=== PATIENT | female | born 1985 | race Hispanic/Latino ===

== ENCOUNTER 2016-10-16 19:47 | Emergency (ER) | payer OTHER ==
[2016-10-16] MEDS ORDERED: NORMAL SALINE 10 ML SYRINGE FLUSH IVP PRN (20:03)
[2016-10-16] MEDS ORDERED: MORPHINE SULFATE 2 MG/1 ML IV ONE (20:03)
[2016-10-16] MEDS ORDERED: Sodium Chloride 0.9% 1,000 ML PRIMARY IV ONE (20:03)
[2016-10-16] MEDS ORDERED: Famotidine Inj 20 MG in Normal Saline Flush 10 ML IVP ONE (20:03)
[2016-10-16] MEDS ORDERED: ONDANSETRON 4 MG/2 ML VIAL IVP ONE ×2 (20:03→20:48)
--- NOTE | 2016-10-16 20:09 | EKG ---
[address] [address] Measurements Intervals [place] Rate: 81 P: 64 [place]: 140 QRS: 44 QRSD: 82 T: 51 QT: 331 QTc: 368 Interpretive Statements SINUS RHYTHM Compared to ECG 09/29/2015 11:51:49 No significant changes Electronically Signed On 10-17-16 09:41:45 MST by Jesse Mason MD [email or web address]
[2016-10-16 20:13] LABS: BASOPHILS # (AUTO) 0.07 10*3/UL; BASOPHILS % (AUTO) 1.1 % (0-1); EOSINOPHILS % (AUTO) 0.3 % (0-8); HEMATOCRIT 39.2 % (37.0-47.0); HEMOGLOBIN 13.6 g/dL (12.0-16.0); IMM GRAN % (AUTO) 0.2 % (0-5); IMM GRAN# (AUTO) 0.01 10*3/UL; LYMPHOCYTES # (AUTO) 2.04 10*3/uL; LYMPHOCYTES % (AUTO) 31.9 % (10-50); MEAN CORPUSCULAR HEMOGLOBIN 30.1 PG (27-31); MEAN CORPUSCULAR HGB CONC 34.7 g/dL (33-37); MEAN PLATELET VOLUME 10.2 FL (7.4-12.2); MONOCYTES % (AUTO) 7.8 % (5-15); NEUTROPHILS # (AUTO) 3.76 10*3/UL; NEUTROPHILS % (AUTO) 58.7 % (50-80); PLATELET MORPHOLOGY COMMENT NORMAL MORPHOLOGY (NORM); RDW COEFFICIENT OF VARIATION 13.1 % (11.5-14.5); RED BLOOD COUNT 4.52 10^6/uL (4.20-5.40)
[2016-10-16 20:26] LABS: AMYLASE 65 U/L (30-110); ASPARTATE AMINO TRANSFERASE 22 IU/L (8-39); BILIRUBIN,TOTAL 0.4 mg/dL (0.3-1.2); BLOOD UREA NITROGEN 14 mg/dL (7-22); BUN/CREATININE RATIO 15.55 (6-20); C-REACTIVE PROTEIN 0.6 mg/dL (0.0-0.9); CALCIUM 9.6 mg/dL (8.7-10.7); CHLORIDE 106 meq/L (98-112); CREATININE 0.9 mg/dL (0.50-1.20); EST GLOMERULAR FILTRATION > 60 (>60 ml/min/1.73m(2)); GLUCOSE 81 mg/dL (78-110); SODIUM 140 meq/L (135-145); TOTAL PROTEIN 7.3 g/dL (6.1-8.0)
[2016-10-16] MEDS ORDERED: MORPHINE SULFATE 4 MG/1 ML IVP ONE (20:47)
[2016-10-16 20:50] LABS: CLARITY,URINE CLEAR (CLEAR); URINE SAMPLE TYPE VOIDED SPECIMEN
[2016-10-16 20:51] LABS: BILIRUBIN,URINE NEGATIVE (NEG); GLUCOSE, URINE (UA) NEGATIVE (NEG); LEUKOCYTE ESTERASE ,URINE NEGATIVE (NEG); NITRATE,URINE NEGATIVE (NEG); OCCULT BLOOD,URINE TRACE (NEG); PROTEIN,URINE NEGATIVE (NEG); UROBILINOGEN,URINE 0.2 EU/dL (0.2)
[2016-10-16 20:52] LABS: RBC,URINE 0-3 /hpf; SQUAMOUS EPITHELIAL CELL,UR RARE
[2016-10-16 20:55] VITALS: RESP 22; TEMP 97.5
--- NOTE | 2016-10-16 21:14 | DI ---
HISTORY: Right lower quadrant pain. COMPARISON: None available. TECHNIQUE: Multiple helically acquired CT images were obtained through the abdomen and pelvis follow ing the intravenous administration of contrast. FINDINGS: Examination demonstrates a normal appendix. Lung bases are clear. The uterus and adnexa are normal. The urinary bladder is unremarkable. There is no mesenteric or retroperitoneal lymphadenopathy. Patient is status post cholecystectomy. Visualized portions of the colon and small bowel are also unremarkable. The anterior abdominal subcutaneous fat is unremarkable. The anterior abdominal wall is also unremar kable. Skeletal structures are unremarkable. IMPRESSION: 1. No evidence of acute appendicitis. 2. No acute intra-abdominal pathology.
--- NOTE | 2016-10-16 21:18 | PDOC ---
Abdomen/Flank HPI - General Chief Complaint: Chest Pain Stated Complaint: Left chest pain Date Seen by Provider: 10/16/16 Time Seen by Provider: 19:50 Source: POSITIVE: Patient Exam Limitations: POSITIVE: No limitations Nurse's Notes Reviewed & Considered: Yes - History of Present Illness Initial Comments: The patient is a 31-year-old female who presents to the emergency department with complaints of right lower quadrant abdominal pain. She states that for the past 3 days she has had intermittent sharp right lower quadrant abdominal pain. She states these pains have been worse at night. She currently describes a constant sharp pain in the right lower quadrant. She has had associated nausea and vomiting. In addition she does have some pain across her lower chest that extends down into her abdomen. This pain is worsened with taking deep inspiration. She denies shortness of breath, fevers or chills, urinary symptoms, vaginal bleeding or discharge, pain or swelling in her extremities or any other associated complaints. She has had previous cholecystectomy. She states that her last menstrual cycle was approximately 1 week ago. She does not take any form of estrogen or control pills. She does report a prior history of kidney stones. - Patient Home Medications Home Medications: Home Medications Sumatriptan Succinate [Imitrex] 50 mg PO ONCE PRN #20 tab 09/22/15 Buspirone HCl 1 tab PO BID #60 tab 06/17/16 Venlafaxine HCl [Effexor] 37.5 mg PO DAILY 06/21/16 Fluticasone Propionate [Flonase Allergy Relief] 2 spr MARCELINO BID #1 spr 08/15/16 Quetiapine Fumarate [Seroquel] 300 mg PO DAILY tab 08/15/16 - Patient Allergies Allergies/Adverse Reactions: Allergies Allergy/AdvReac Type Severity Reaction Status Date / Time No Known Allergies Allergy Verified 10/16/16 21:09 Past Medical History - heen HEENT History: Denies History Cardiovascular History: Denies History Respiratory History: Denies History Gastrointestinal History: Other (please comment) Additional Gastrointestinal History: Hx of cholecystectomy. Genitourinary History: Recurrent UTI, Kidney Stones Endocrine History: Denies History Musculoskeletal History: Other (please comment) Prosthesis or Implant: No Additional Musculoskeletal History: Hx of right carpal tunnel release. Neurological History: Denies History Blood Disorders: Denies History Psychiatric History: Depression, Anxiety Disorders History of Sexually Transmitted Diseases: No Female Reproductive History: Denies History Obstetrical History: Denies History Cancer History: Denies History In Past Year Been Physically Harmed or Verbally Threatened: No History of MDRO: No History of Other Communicable Diseases: No Tobacco Use: Current Every Day Smoker Alcohol Use: Occasionally Substance Use Type: None Previous Surgical History: Yes Type / Date of Surgery: Hx of cholecystectomy, T & A, Right carpal tunnel release/LEEP, LITHOTRIPSY Anesthesia Reactions: No Malignant Hyperthermia: No Significant Family History: No pertinent family hx Past Medical History Reviewed: Reviewed - No Changes ROS - Limitations ROS Limitations: No Limitations Constitution: DENIES: Chills, Fever Cardiovascular: REPORTS: Chest Pain. DENIES: Heart Racing, Heart Palpitations, Blood Pressure Problem, Edema Respiratory: REPORTS: Hurts To Breathe. DENIES: Cough Non Productive, Cough Productive, Shortness Of Breath Neurological: REPORTS: Denies Neuro Symptoms Gastrointestinal: REPORTS: Abdominal Pain, Nausea, Vomitting, Diarrhea, Other ( She reports that she has intermittent diarrhea and constipation for the past 4 or 5 months, she was supposed to have EGD and colonoscopy however could not afford this.) Musculoskeletal: REPORTS: Denies MS Symptoms Genitourinary: REPORTS: Denies Symptoms, Flank Pain, Other (No vaginal bleeding or discharge currently). DENIES: Dysuria, Hematuria, Difficulty Urinating Eyes: REPORTS: Denies Symptoms ENT: REPORTS: Denies Symptoms Skin: DENIES: Rash Abdominal/Flank Pain PE - General Appearance General Appearance: POSITIVE: Alert, Cooperative, No Acute Distress - HEENT HEENT: POSITIVE: Head Inspection Nml, Eyes Inspection Nml, Ears Inspection Nml, Pharynx Inspect. Nml - Neck Neck: POSITIVE: Normal Inspection. NEGATIVE: Lymphadenopathy - Respiratory Respiratory: POSITIVE: No Respiratory Distress, Breath Sounds Normal - Cardiovascular Cardiovascular: POSITIVE: Regular Rate and Rhythm, Heart Sounds Normal - Abdomen Abdomen: Soft: (All Quadrants), Normal Bowel Sounds: (All Quadrants), No Palpabale Mass: (All Quadrants), No Distention: (All Quadrants) Additional Abdominal Details: She does have tenderness primarily in the right lower quadrant with some generalized rebound tenderness which elicits pain in the right lower quadrant, no guarding, some mild right-sided CVA tenderness, some increased pain with heel tap. - Back Back: POSITIVE: CVA Tenderness (R). NEGATIVE: CVA Tenderness (L) - Skin Skin: POSITIVE: Intact, No Rash - Extremities Extremity: Normal ROM: (All Extremities), Normal Inspection: (All Extremities) - Neurological Neurological: POSITIVE: Oriented X3, Motor Normal, Sensation Normal Abdomen Progress - Results Reviewed by me Xrays/CTs/US Reviewed by me: Yes Discussed with Radiologist: Yes Radiology Findings: CT scan of the abdomen and pelvis reveals no evidence of any acute intra-abdominal findings per radiologist. She had a normal appendix. Lab Results Reviewed: Yes Lab Results:: Laboratory Results 10/16/16 10/16/16 Range/Units 20:05 20:44 WBC 6.40 (4.8-10.8) 10^3/uL RBC 4.52 (4.20-5.40) 10^6/uL Hgb 13.6 (12.0-16.0) g/dL Hct 39.2 (37.0-47.0) % MCV 86.7 (81-99) FL MCH 30.1 (27-31) PG MCHC 34.7 (33-37) g/dL RDW Std Deviation 40.7 (39-50) fL RDW Coeff of Sarah 13.1 (11.5-14.5) % Plt Count 307 (140-350) 10*3/uL MPV 10.2 (7.4-12.2) FL Immature Gran % (Auto) 0.2 (0-5) % Neut % (Auto) 58.7 (50-80) % Lymph % (Auto) 31.9 (10-50) % [place] % (Auto) 7.8 (5-15) % Eos % (Auto) 0.3 (0-8) % Baso % (Auto) 1.1 H (0-1) % Immature Gran # (Auto) 0.01 10*3/UL Neut # (Auto) 3.76 10*3/UL Lymph # (Auto) 2.04 10*3/uL [place] # (Auto) 0.50 (0.3-0.8) 10*3/UL Eos # (Auto) 0.02 10*3/UL Baso # (Auto) 0.07 10*3/UL WBC Morphology Comment Normal morphology (NORM) Plt Morphology Comment Normal morphology (NORM) RBC Morph Comment Normal morphology (NORM) D-Dimer 0.26 (0.00-0.59) mg/L Sodium 140 (135-145) meq/L Potassium 4.0 (3.8-5.2) meq/L Chloride 106 (98-112) meq/L Carbon Dioxide 23 (23-33) meq/L Anion Gap 11 (5-20) BUN 14 (7-22) mg/dL Creatinine 0.9 (0.50-1.20) mg/dL Estimated GFR > 60 (>60 ml/min/1.73m(2)) BUN/Creatinine Ratio 15.55 (6-20) Glucose 81 (78-110) mg/dL Calculated Osmolality 289.0 (267-292) mOsm/kg Calcium 9.6 (8.7-10.7) mg/dL Total Bilirubin 0.4 (0.3-1.2) mg/dL AST 22 (8-39) IU/L ALT 30 (9-52) IU/L Alkaline Phosphatase 64 (38-126) IU/L Troponin I < 0.012 (< 0.040) ng/mL C-Reactive Protein 0.6 (0.0-0.9) mg/dL Total Protein 7.3 (6.1-8.0) g/dL Albumin 4.5 (3.5-4.8) g/dL Globulin 2.9 (2.50-4.10) g/dL Albumin/Globulin Ratio 1.50 (1.3-2.0) mg/g Amylase 65 (30-110) U/L Lipase 57 (23-300) IU/L Serum HCG, Qual Negative Ur Collection Type Voided specimen Urine Color Yellow Urine Clarity Clear (CLEAR) Urine pH 6.0 (5.0-8.5) Ur Specific [place] 1.020 (1.005-1.030) Urine Protein Negative (NEG) mg/dl Urine Glucose (UA) Negative (NEG) mg/dL Urine Ketones Negative (NEG) Urine Occult Blood Trace H (NEG) Urine Nitrate Negative (NEG) Urine Bilirubin Negative (NEG) Urine Urobilinogen 0.2 (0.2) EU/dL Ur Leukocyte Esterase Negative (NEG) Urine RBC 0-3 (NONE) /hpf Urine WBC None (NONE) Ur Squamous Epith Cells Rare (NONE) Ur Renal Epithelial Cell None (NONE) Urine Crystals None Urine Bacteria None (NONE) Urine Casts None (NONE) Urine Mucus None (NONE) Urine Trichomonas None (NONE) Urine Yeast None (NONE) Ur Culture Indicated? Culture not set - Patient's Progress MDM / ED Course: Because of her complaints of some pain radiating into her lower chest and EKG was done shortly after arrival which showed a normal sinus rhythm with no acute changes. An IV was established and she received initially 2 mg of morphine, 4 mg of Zofran and 20 mg of Pepcid IV. She did not have any significant pain relief or relief of nausea. She received a second dose of morphine 4 mg IV and a repeat dose of Zofran 4 mg IV. Her troponin and d-dimer are both normal. Remainder of her lab work and urinalysis are also unremarkable and her test is negative. CT scan of the abdomen and pelvis was ordered. This showed no acute abnormalities per radiologist. At this point the exact etiology of her right lower quadrant abdominal pain is unclear. It is possible that she could've passed a kidney stone or had a small ovarian cyst that ruptured that is no longer visible. In addition she has had bowel complaints off and on now for months. It is possible she may have some type of irritable bowel syndrome as well. She was supposed to have upper and lower endoscopies with the pipe cutter in [place] however did not complete this because her insurance lapsed. The lower chest pain is most likely secondary to reflux or gastritis. She was advised to start back on Prilosec daily. She also has prescriptions for Carafate and Bentyl as needed. She was given number for [place] as needed for severe breakthrough pain. She is advised return to the emergency room if she develops increased abdominal pain, fevers or chills, vomiting or dehydration, any worsening or change in symptoms. She'll follow-up with Dr. Evans and will consider rescheduling her endoscopies with the pipe cutter in [place]. - Consult Counseled: POSITIVE: Patient, RE: Lab Results, RE: Radiology Results, RE: DX, RE : Need for F/U Patient Care Time - Estimated PCT Patient Care Time (In Minutes): 35 Vital Signs - Recent Vital Signs Vital Signs: Vital Signs (Last 8 hours) Temp Pulse Resp BP Pulse Ox 10/16/16 19:47 97.5 F 80 22 109/56 96 - VS Reviewed Vital Signs Reviewed: Yes Discharge Clinical Impression: Abdominal pain Condition: Stable Patient Instructions Given at Discharge: Chest Pain (ED), Abdominal Pain (ED) Additional Instructions: The exact cause of your chest and abdominal pain is not clear. The EKG of your heart was normal and blood work did not show any evidence of heart attack or blood clot. Your blood work was all essentially normal. Your urinalysis was also normal. The CAT scan revealed a normal appendix, normal bowel, no evidence of kidney stone and no obvious ovarian cyst. It is possible that the right lower quadrant abdominal pain could be from a kidney stone that is past or from a small ovarian cyst that is ruptured causing a small amount of bleeding. The chest pain is most likely secondary to acid reflux or gastritis ( inflammation in your stomach). It is also possible that you may have irritable bowel syndrome. For now I would recommend restarting your Prilosec, Carafate and Bentyl as needed for abdominal pain. In addition your been given [place] which he can take one every 6 hours as needed for severe pain. Recommend returning to the emergency room if increased pain, fever, vomiting or dehydration, any worsening or change in symptoms. Recommend follow-up with Dr. Evans in 5-7 days. Consider rescheduling endoscopies with the pipe cutter. Follow Up With: JOSE EVANS [Primary Care Provider] -
[2016-10-16] MEDS ORDERED: KETOROLAC 30 MG/1 ML VIAL IVP ONE (21:44)
[2016-10-16] MEDS ORDERED: KETOROLAC 30 MG/1 ML VIAL ONE (21:52)
[2016-10-16] MEDS ORDERED: HYDROcodone-APAP 5 MG -325 MG TABLET PO SCH (22:00)
== END 2016-10-16 22:02 | disposition home or self-care (01) ==
LOC: ER 19:47
DX: R10.31 Right lower quadrant pain (principal); R07.89 Other chest pain; Z72.0 Tobacco use
CPT/HCPCS: 74177; 80053; 81001; 81003; 82150; 83690; 84484; 84703; 85025; 85379; 86140; 93005; 93010; J1885; 96374; 96375; 96376; 99284; J2270; J2405; J7030

== ENCOUNTER → 2017-01-15 | Outpatient (CLI) | payer OTHER | LOC: MOB LAB 10:37 | PROVIDERS: ATTEND Obstetrics & Gynecology | DX: Z30.430 Encounter for insertion of intrauterine contraceptive device (principal) | CPT/HCPCS: 87491; 87591 ==

== ENCOUNTER 2017-02-03 21:08 | Emergency (ER) | payer OTHER ==
[2017-02-03 21:32] VITALS: TEMP 97.9
[2017-02-03] MEDS ORDERED: NORMAL SALINE 10 ML SYRINGE FLUSH IVP PRN (21:32)
[2017-02-03] MEDS ORDERED: Sodium Chloride 0.9% 1,000 ML PRIMARY IV ONE (21:32)
[2017-02-03] MEDS: LORazepam 2 MG/1 ML VIAL IVP ONE ×2 (21:38→23:05)
[2017-02-03 21:46] LABS: VENOUS PH 7.48 (7.32-7.42)
[2017-02-03 21:47] LABS: BASOPHILS # (AUTO) 0.04 10*3/UL; BASOPHILS % (AUTO) 0.4 % (0-1); EOSINOPHILS # (AUTO) 0.02 10*3/UL; EOSINOPHILS % (AUTO) 0.2 % (0-8); HEMATOCRIT 41.1 % (37.0-47.0); HEMOGLOBIN 14.2 g/dL (12.0-16.0); LYMPHOCYTES # (AUTO) 2.17 10*3/uL; MEAN CORPUSCULAR HEMOGLOBIN 29.8 PG (27-31); MEAN CORPUSCULAR HGB CONC 34.5 g/dL (33-37); MEAN CORPUSCULAR VOLUME 86.3 FL (81-99); MEAN PLATELET VOLUME 10.5 FL (7.4-12.2); MONOCYTES # (AUTO) 0.67 10*3/UL (0.3-0.8); MONOCYTES % (AUTO) 7.1 % (5-15); NEUTROPHILS # (AUTO) 6.47 10*3/UL; RED BLOOD COUNT 4.76 10^6/uL (4.20-5.40)
[2017-02-03 21:49] LABS: PLATELET MORPHOLOGY COMMENT NORMAL MORPHOLOGY (NORM); RBC MORPHOLOGY COMMENT NORMAL MORPHOLOGY (NORM); WBC MORPHOLOGY COMMENT NORMAL MORPHOLOGY (NORM)
[2017-02-03 22:00] VITALS: RESP 20
[2017-02-03 22:00] LABS: BLOOD UREA NITROGEN 16 mg/dL (7-22); BUN/CREATININE RATIO 22.85 (6-20); CALCIUM 9.8 mg/dL (8.7-10.7); EST GLOMERULAR FILTRATION > 60 (>60 ml/min/1.73m(2)); SERUM ALBUMIN 4.6 g/dL (3.5-4.8)
[2017-02-03 22:10] LABS: BILIRUBIN,URINE SMALL (NEG); CLARITY,URINE CLEAR (CLEAR); COLOR,URINE YELLOW; GLUCOSE, URINE (UA) NEGATIVE (NEG); NITRATE,URINE NEGATIVE (NEG); OCCULT BLOOD,URINE Trace-intact (NEG); PH,URINE 5.5 (5.0-8.5); PROTEIN,URINE 100 mg/dl (NEG)
[2017-02-03 22:18] LABS: AMPHETAMINE SCREEN NEGATIVE (NEG); CANNABINOID SCREEN,URINE POSITIVE (NEG); COCAINE SCREEN NEGATIVE (NEG); METHADONE URINE SCREEN NEGATIVE (NEG); METHAMPHETAMINES SCREEN,URINE NEGATIVE (NEG); OPIATE SCREEN,URINE NEGATIVE (NEG); URINE SAMPLE TYPE CLEAN CATCH URINE; URINE SPECIFIC GRAVITY - MAN 1.038
[2017-02-03 22:19] LABS: RBC,URINE 0-1 /hpf; URINE SPECIFIC GRAVITY - MAN 1.038
[2017-02-03 22:20] LABS: BACTERIA,URINE FEW; SQUAMOUS EPITHELIAL CELL,UR MANY; WBC,URINE 0-1
--- NOTE | 2017-02-04 00:03 | PDOC ---
General Adult HPI - General Chief Complaint: General Medical Stated Complaint: Shaking, "feels like going to pass out" Date Seen by Provider: 02/03/17 Time Seen by Provider: 21:20 Source: POSITIVE: Patient Exam Limitations: POSITIVE: No limitations Nurse's Notes Reviewed & Considered: Yes - History of Present Illness Initial Comment: The patient is a 31-year-old female. She states that for the past hour she has felt "very shaky"and states that she has felt "tingling all over", especially in her hands. Patient had a migraine headache earlier today and took an over- the-counter migraine preparations just prior to the onset of her symptoms. She takes Effexor and BuSpar for anxiety and depression. No history of trauma. No fevers or chills. No focal motor deficits. No GI or symptoms. She has been under considerable stress lately due to personal relationships and finances. Have you received a tetanus shot in the past 10 years?: Yes Body Location Affected: REPORTS: Other (As above) Timing: REPORTS: Abrupt, Constant Duration: 1 hour Severity: Moderate Quality: REPORTS: Other (Patient denies any pain anywhere; no headache.) Context: REPORTS: None Modifying Factors: improves with: Nothing Similar Symptoms Previously: No Recent Care Received: REPORTS: Denies Any Prior Injuries Related to Current Complaint?: No - Patient Home Medications Home Medications: Home Medications Sumatriptan Succinate [Imitrex] 50 mg PO ONCE PRN #20 tab 09/22/15 Venlafaxine HCl [Effexor] 37.5 mg PO DAILY 06/21/16 Quetiapine Fumarate [Seroquel] 300 mg PO DAILY PRN tab 08/15/16 Hyoscyamine Sulfate [Levsin-Sl] 0.125 mg PO Q4-6HRSPRN tab 10/28/16 Omeprazole 1 cap PO DAILY cap 10/28/16 Buspirone HCl 1 tab PO BID tab 01/01/17 - Patient Allergies Allergies/Adverse Reactions: Allergies Allergy/AdvReac Type Severity Reaction Status Date / Time No Known Allergies Allergy Verified 02/03/17 21:14 Past Medical History - heen HEENT History: Denies History Cardiovascular History: Denies History Respiratory History: Denies History Gastrointestinal History: Other (please comment) Additional Gastrointestinal History: GASTROPARESIS Genitourinary History: Recurrent UTI, Kidney Stones Endocrine History: Denies History Musculoskeletal History: Other (please comment) Prosthesis or Implant: No Additional Musculoskeletal History: Hx of right carpal tunnel release. Neurological History: Migraines Blood Disorders: Denies History Psychiatric History: Depression, Anxiety Disorders, PTSD History of Sexually Transmitted Diseases: No Female Reproductive History: Denies History Obstetrical History: Denies History Cancer History: Denies History In Past Year Been Physically Harmed or Verbally Threatened: No History of MDRO: No History of Other Communicable Diseases: No Tobacco Use: Current Every Day Smoker Alcohol Use: Occasionally Substance Use Type: None Previous Surgical History: Yes Type / Date of Surgery: Hx of cholecystectomy, T & A, Right carpal tunnel release/LEEP, LITHOTRIPSY Anesthesia Reactions: No Malignant Hyperthermia: No Significant Family History: No pertinent family hx Past Medical History Reviewed: Reviewed - No Changes ROS - Limitations ROS Limitations: No Limitations Constitution: REPORTS: Denies Symptoms Cardiovascular: REPORTS: Denies Cardiac Symptoms Respiratory: REPORTS: Denies Resp Symptoms Neurological: REPORTS: Denies Neuro Symptoms Gastrointestinal: REPORTS: Denies GI Symptoms Endocrine: REPORTS: Denies Symptoms Musculoskeletal: REPORTS: Denies MS Symptoms Genitourinary: REPORTS: Denies Symptoms Eyes: REPORTS: Denies Symptoms ENT: REPORTS: Denies Symptoms Skin: REPORTS: Denies Skin Symptoms Lympathic: REPORTS: Denies Lympathic Symptoms Immunologic: POSITIVE: Denies Symptoms Psychiatric: POSITIVE: Denies Psych Symptoms General Adult Exam - General Appearance General Appearance: POSITIVE: Alert, Cooperative, No Acute Distress, No Evidence of Trauma, Other (Very anxious; tremulous; hyperventilating) - HEENT HEENT: POSITIVE: Head Inspection Nml, Eyes Inspection Nml, Ears Inspection Nml, Nose Inspection Nml, Oral/Dental Inspect. Nml, Pharynx Inspect. Nml, PERRL, EOMI - Pupils Pupil Size: 3 mm: Bilateral (PERRLA) - Neck Neck: POSITIVE: Normal Inspection, Thyroid Normal - Respiratory Respiratory: POSITIVE: No Respiratory Distress, Breath Sounds Normal, Chest Non- Tender - Cardiovascular Cardiovascular: POSITIVE: Regular Rate & Rhythm, No Murmur, No Gallop, PMI Normal Peripheral Pulses: Radial (R): 2+, Radial (L): 2+ - Abdomen Abdomen: Soft: (All Quadrants), Normal Bowel Sounds: (All Quadrants), Denies Tenderness: (All Quadrants), No Splenomegaly: (All Quadrants), No Hepatomegaly: (All Quadrants), No Guarding: (All Quadrants), No Rebound: (All Quadrants), No Palpable Pulse: (All Quadrants), No Palpabale Mass: (All Quadrants), No Distention: (All Quadrants), No Rigidity: (All Quadrants) - Back Back: POSITIVE: Normal Inspection - Skin Skin: POSITIVE: Normal Color, Warm, Dry, No Rash - Extremities Extremity: Non-Tender: (All Extremities), Normal ROM: (All Extremities), Normal Inspection: (All Extremities) - Neurological / Psychological Neurological: POSITIVE: Oriented X3, 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, Motor Normal, Sensation Normal, 5, 6 General Adult Progress - Results Reviewed by me Lab Results Reviewed: Yes (VBG shows respiratory alkalosis) Lab Results:: Laboratory Results 02/03/17 02/03/17 02/03/17 Range/Units 21:35 21:40 21:55 WBC 9.39 (4.8-10.8) 10^3/uL RBC 4.76 (4.20-5.40) 10^6/uL Hgb 14.2 (12.0-16.0) g/dL Hct 41.1 (37.0-47.0) % MCV 86.3 (81-99) FL MCH 29.8 (27-31) PG MCHC 34.5 (33-37) g/dL RDW Std Deviation 44.2 (39-50) fL RDW Coeff of Sarah 14.2 (11.5-14.5) % Plt Count 355 H (140-350) 10*3/uL MPV 10.5 (7.4-12.2) FL Immature Gran % (Auto) 0.2 (0-5) % Neut % (Auto) 69.0 (50-80) % Lymph % (Auto) 23.1 (10-50) % [place] % (Auto) 7.1 (5-15) % Eos % (Auto) 0.2 (0-8) % Baso % (Auto) 0.4 (0-1) % Immature Gran # (Auto) 0.02 10*3/UL Neut # (Auto) 6.47 10*3/UL Lymph # (Auto) 2.17 10*3/uL [place] # (Auto) 0.67 (0.3-0.8) 10*3/UL Eos # (Auto) 0.02 10*3/UL Baso # (Auto) 0.04 10*3/UL WBC Morphology Comment Normal morphology (NORM) Plt Morphology Comment Normal morphology (NORM) RBC Morph Comment Normal morphology (NORM) VBG pH 7.48 H (7.32-7.42) VBG pCO2 24 L (45-55) mmHg VBG HCO3 18 L (22-26) mmol/L VBG Base Excess -6 L (-2-2) MMOL/L Sodium 140 (135-145) meq/L Potassium 3.8 (3.8-5.2) meq/L Chloride 108 (98-112) meq/L Carbon Dioxide 19 L (23-33) meq/L Anion Gap 13 (5-20) BUN 16 (7-22) mg/dL Creatinine 0.7 (0.50-1.20) mg/dL Estimated GFR > 60 (>60 ml/min/1.73m(2)) BUN/Creatinine Ratio 22.85 H (6-20) Glucose 120 H (78-110) mg/dL Calculated Osmolality 291.0 (267-292) mOsm/kg Calcium 9.8 (8.7-10.7) mg/dL Total Bilirubin 0.3 (0.3-1.2) mg/dL AST 20 (8-39) IU/L ALT 22 (9-52) IU/L Alkaline Phosphatase 65 (38-126) IU/L Total Protein 7.6 (6.1-8.0) g/dL Albumin 4.6 (3.5-4.8) g/dL Globulin 3.0 (2.50-4.10) g/dL Albumin/Globulin Ratio 1.50 (1.3-2.0) mg/g Serum HCG, Qual Negative Ur Collection Type Clean catch urine Urine Color Yellow Urine Clarity Clear (CLEAR) Urine pH 5.5 (5.0-8.5) Ur Specific [place] >=1.030 (1.005-1.030) U Specif Grav (Refrac) 1.038 Urine Protein 100 (NEG) mg/dl Urine Glucose (UA) Negative (NEG) mg/dL Urine Ketones 15 (NEG) Urine Occult Blood Trace-intact H (NEG) Urine Nitrate Negative (NEG) Urine Bilirubin Small (NEG) Urine Urobilinogen 4.0 (0.2) EU/dL Ur Leukocyte Esterase Negative (NEG) Urine RBC 0-1 (NONE) /hpf Urine WBC 0-1 (NONE) Ur Squamous Epith Cells Many (NONE) Ur Renal Epithelial Cell None (NONE) Urine Crystals None Urine Bacteria Few (NONE) Urine Casts None (NONE) Urine Mucus Moderate (NONE) Urine Trichomonas None (NONE) Urine Yeast None (NONE) Ur Culture Indicated? Culture not set Urine Opiates Screen Negative (NEG) Ur Buprenorphine Negative (NEG) Ur Oxycodone Screen Negative (NEG) Urine Methadone Screen Negative (NEG) Ur Propoxyphene Screen Negative (NEG) Barbiturate Screen Negative (NEG) U Tricyclic Antidepress Negative (NEG) Phencyclidine Screen Negative (NEG) Amphetamines Screen Negative (NEG) U Methamphetamines Scrn Negative (NEG) Benzodiazepines Screen Negative (NEG) Cocaine Screen Negative (NEG) U Marijuana (THC) Screen Positive H (NEG) - Patient's Progress Pain Medication Addressed: POSITIVE: Not Applicable School/Work Release Addressed: POSITIVE: Not Applicable Re-Examine Time: 23:05 Re-Examine Comment: Patient given 2 mg of Ativan shortly after arrival with some improvement. Patient given another 2 mg and on discharge patient is asymptomatic and no longer tremulous or hyperventilating. Status: POSITIVE: Improved, Re-Examined - Consult Counseled: POSITIVE: Patient, RE: Lab Results, RE: DX, RE: Need for F/U Patient Care Time - Estimated PCT Patient Care Time (In Minutes): 38 Vital Signs - Recent Vital Signs Vital Signs: Vital Signs (Last 8 hours) Temp Pulse Resp BP Pulse Ox 02/03/17 21:45 96 20 104/79 97 02/03/17 21:13 97.9 F 106 H 22 149/100 97 - VS Reviewed Vital Signs Reviewed: Yes Discharge Clinical Impression: Anxiety, Hyperventilation Discharge Disposition: Discharged to Home Condition: Stable Patient Instructions Given at Discharge: Hyperventilation (ED), Anxiety (ED) Additional Instructions: I'm glad you are feeling better. You're having a severe anxiety episode with associated hyperventilation. This produced the shakiness and the "tingling" that you experienced. I believe you're going to be fine. Your numerous life stressors probably contributed to this episode. Follow-up with your primary care provider. Return here anytime if condition worsens in any way. Follow Up With: JOSE EVANS [Primary Care Provider] - (Instructions as above. Follow-up with your primary care provider. Return here as necessary.)
== END 2017-02-04 00:02 | disposition home or self-care (01) ==
LOC: ER 21:08
DX: F41.9 Anxiety disorder, unspecified (principal); R06.4 Hyperventilation; R20.2 Paresthesia of skin
CPT/HCPCS: 36415; 80053; 80305; 81001; 81003; 82803; 84703; 85025; 96361; 96374; 99283; J2060; J7030

== ENCOUNTER 2017-02-13 07:00 | Day surgery (SDC) | payer OTHER ==
[~2017-02-13 07:00] MED LIST: BUPivacaine Inj 0.25% PF - 10ml vial ONE; LIDOCAINE W/ SODIUM BICARB 0.5 ML SYR ONE; Lactated Ringers 1,000 ML PRIMARY IV ONE
[2017-02-13] MEDS ORDERED: NORMAL SALINE 10 ML SYRINGE FLUSH IVP PRN ×2 (07:03→08:40)
[2017-02-13] MEDS ORDERED: fentaNYL Inj 100 MCG/2 ML VIAL IVP PRN (07:03)
[2017-02-13] MEDS ORDERED: ATROPINE SULFATE 0.4 MG/1 ML VIAL IVP PRN (07:03)
[2017-02-13] MEDS ORDERED: ONDANSETRON 4 MG/2 ML VIAL IVP PRN (07:03)
[2017-02-13] MEDS ORDERED: Ondansetron ODT Tab 8 MG TAB PO PRN ×2 (07:03→08:40)
[2017-02-13] MEDS ORDERED: Lactated Ringers 1,000 ML PRIMARY IV SCH (07:15)
[2017-02-13 07:17] LABS: BILIRUBIN,URINE NEGATIVE (NEG); CLARITY,URINE CLEAR (CLEAR); COLOR,URINE YELLOW; GLUCOSE, URINE (UA) NEGATIVE (NEG); NITRATE,URINE NEGATIVE (NEG); OCCULT BLOOD,URINE LARGE (NEG); PH,URINE 5.5 (5.0-8.5); PROTEIN,URINE 30 mg/dl (NEG); UROBILINOGEN,URINE 0.2 EU/dL (0.2)
[2017-02-13] MEDS ORDERED: fentaNYL Inj 100 MCG/2 ML VIAL ONE (07:17)
[2017-02-13] MEDS ORDERED: MIDAZOLAM 5 MG/1 ML ONE (07:17)
[2017-02-13] MEDS ORDERED: REMIFENTANIL 1 MG/1 ML IV ONE (07:17)
[2017-02-13] MEDS ORDERED: LIDOCAINE MPF 2% - 5 ML (20 MG/1 ML) ONE (07:17)
[2017-02-13] MEDS ORDERED: Sodium Chloride 0.9% vial 30 ML ONE (07:17)
[2017-02-13] MEDS ORDERED: KETOROLAC 30 MG/1 ML VIAL ONE (07:18)
[2017-02-13 07:27] LABS: BACTERIA,URINE RARE; SQUAMOUS EPITHELIAL CELL,UR MANY; URINE SAMPLE TYPE CLEAN CATCH URINE
[2017-02-13 07:37] VITALS: RESP 15
[2017-02-13] MEDS ORDERED: ePHEDrine Inj 50 MG/ML AMP ONE (08:27)
[2017-02-13] MEDS ORDERED: Lactated Ringers 1,000 ML PRIMARY IV ONE (08:33)
[2017-02-13] MEDS ORDERED: DEXAMETHASONE PF 10 MG/1 ML VIAL ONE (08:39)
[2017-02-13] MEDS ORDERED: oxyCODONE-ACETAMINOPHEN 5-325 TAB PO PRN (08:40)
[2017-02-13] MEDS ORDERED: KETOROLAC 15 MG/1 ML VIAL IVP PRN (08:40)
[2017-02-13] MEDS ORDERED: IBUPROFEN 800 MG TABLET PO PRN (08:40)
--- NOTE | 2017-02-13 08:48 | OB.OP.NOTE ---
Operative Report Surgeon: Danyel Study Coordinator: Torrey Wright MD Anesthesia Type: General Anesthesia Provider: Paige Nevarez CRNA Surgery Date: 02/13/17 Preoperative Diagnosis: Desires Sterilization Postoperative Diagnosis: Same Procedure: Laparoscopic Tubal Sterilization with Filshie Clips and removal of Mirena IUD Estimated Blood Loss (mL): 0 Fluids: 1200 ml Complications: None Findings at Surgery: Normal uterus tubes and ovaries. The liver edge, stomach, visualized portion of the bowel, pelvic peritoneum and appendix all appeared normal with no visible evidence of bowel injury. Indications for the Procedure: Desires permanent sterilization Description of Procedure: The patient was taken to the operating room and placed supine where general endotracheal anesthesia was administered. She was then placed in lithotomy position in [facility]. Examination under anesthesia was unremarkable. She was prepped and draped in the normal sterile fashion and her bladder was emptied of urine with a straight catheter. A breakaway speculum was placed in the vagina. The Mirena was grasped with a ring forcep and removed intact without difficulty. Uterus was then sounded to a depth of 7.5 cm. A HUMI uterine manipulator was introduced in the endometrial cavity at its tip balloon was inflated with air. The tenaculum was removed. The speculum was removed from the vagina. Attention was then turned to the abdomen where quarter percent Marcaine with epinephrine was injected in the midline at the inferior edge of the umbilicus. A scalpel was used to create a 5 mm incision at the inferior edge of the umbilicus in the midline. Penetrating towel clamps were then used to grasp the abdominal wall just lateral to the incision on both sides and elevate while a 5 mm non-bladed laparoscopic trocar is introduced through the umbilical incision into the peritoneal cavity with a direct insertion technique under direct visualization with a 5 mm scope placed within the port. The abdomen was then insufflated with carbon dioxide. A second incision was then made in the midline just above the pubic bone in a transverse manner after injection with Marcaine, 8 mm in length. An 8 mm non-bladed laparoscopic trocar was then introduced through this incision into the peritoneal cavity under direct visualization. The patient was placed in Trendelenburg position. A systematic inspection of the pelvis and upper abdomen was then made with findings as noted above. A Filshie clip applicator was then introduced to the suprapubic port. The right fallopian tube was grasped at its mid isthmic portion and a single Filshie clip was applied. A photograph was taken. The applicator was then removed reloaded and reintroduced. A left fallopian tube was then grasped at its mid isthmic portion and a single Filshie clip was applied. Another photograph was taken. The appendix was then identified and seen to appear normal. All instruments were then removed from the abdomen and the abdomen was desufflated with direct pressure through the removed caps on the trocar sleeves. The sleeves were then removed and the skin wounds were closed with 4-0 Monocryl and dressed appropriately. The uterine manipulator was removed with good hemostasis noted. Sponge, lap, and needle counts were correct 2. There were no complications at surgery. The patient left to recovery in good condition. Plan: Routine postoperative care and discharge to home.
[2017-02-13] MEDS: HYDROmorphone 2 MG/1 ML IVP PRN ×3 (09:07→09:20)
[2017-02-13] MEDS ORDERED: HYDROmorphone 2 MG/1 ML ONE (09:08)
[2017-02-13] MEDS ORDERED: Acetaminophen 1000mg Inj 1,000 MG in Premix 1 BAG IV ONE ×2 (09:13→09:15)
[2017-02-13] MEDS ORDERED: Acetaminophen 1000mg Inj 100 ML IV ONE (09:20)
[2017-02-13] MEDS ORDERED: oxyCODONE IR Tab 5 MG TAB PO ONE ×2 (09:50→09:52)
[2017-02-13 12:44] VITALS: TEMP 97.4
== END 2017-02-13 11:20 | disposition home or self-care (01) ==
LOC: SDSC 07:00
PROVIDERS: ATTEND Obstetrics & Gynecology
DX: Z30.2 Encounter for sterilization (principal)
CPT/HCPCS: 58301; 58671; 81001; 84703; A4216; J0131; J1885; J2704; J3010; J1100; J1170; J2001; J2250; J7120

== ENCOUNTER 2017-02-16 11:25 | Emergency (ER) | payer OTHER ==
[2017-02-16] MEDS ORDERED: KETOROLAC 15 MG/1 ML VIAL IVP ONE (11:35)
[2017-02-16] MEDS ORDERED: Sodium Chloride 0.9% 1,000 ML PRIMARY IV ONE (11:35)
[2017-02-16] MEDS ORDERED: ONDANSETRON 4 MG/2 ML VIAL IVP ONE (11:35)
[2017-02-16] MEDS ORDERED: NORMAL SALINE 10 ML SYRINGE FLUSH IVP PRN (11:35)
[2017-02-16] MEDS ORDERED: MORPHINE SULFATE 4 MG/1 ML IVP ONE (11:37)
[2017-02-16 11:41] VITALS: RESP 18; TEMP 97.3
[2017-02-16 11:47] LABS: BASOPHILS # (AUTO) 0.01 10*3/UL; BASOPHILS % (AUTO) 0.1 % (0-1); EOSINOPHILS # (AUTO) 0.01 10*3/UL; EOSINOPHILS % (AUTO) 0.1 % (0-8); HEMATOCRIT 40.1 % (37.0-47.0); HEMOGLOBIN 13.6 g/dL (12.0-16.0); LYMPHOCYTES # (AUTO) 1.87 10*3/uL; MEAN CORPUSCULAR HEMOGLOBIN 29.6 PG (27-31); MEAN CORPUSCULAR HGB CONC 33.9 g/dL (33-37); MEAN CORPUSCULAR VOLUME 87.2 FL (81-99); MEAN PLATELET VOLUME 10.6 FL (7.4-12.2); MONOCYTES # (AUTO) 0.54 10*3/UL (0.3-0.8); MONOCYTES % (AUTO) 7.2 % (5-15); NEUTROPHILS # (AUTO) 5.04 10*3/UL; NEUTROPHILS % (AUTO) 67.3 % (50-80)
[2017-02-16 11:48] LABS: PLATELET MORPHOLOGY COMMENT NORMAL MORPHOLOGY (NORM); RBC MORPHOLOGY COMMENT NORMAL MORPHOLOGY (NORM); WBC MORPHOLOGY COMMENT NORMAL MORPHOLOGY (NORM)
--- NOTE | 2017-02-16 11:52 | PDOC ---
Abdomen/Flank HPI - General Chief Complaint: Abdomen Pain Stated Complaint: lower abd pain s/p tubal Date Seen by Provider: 02/16/17 Time Seen by Provider: 11:35 Source: POSITIVE: Patient Exam Limitations: POSITIVE: No limitations Nurse's Notes Reviewed & Considered: Yes - History of Present Illness Initial Comments: The patient is a 31-year-old female who presents to the emergency department with abdominal pain. She is 3 days status post laparoscopic tubal ligation per Dr. Montaño. She states that she has been having lower abdominal pain since the surgery. She had contacted her physician on Friday and they recommended that she increase her Percocet to 2 as needed for pain along with ibuprofen. She states that this does not seem to be helping. She does have associated nausea without vomiting. She also is having fairly heavy vaginal bleeding up to a pad an hour. She denies fever. She does have some burning with urination. She states that some of the pain does radiate through to her lower back, not one side more than the other. - Patient Home Medications Home Medications: Home Medications Sumatriptan Succinate [Imitrex] 50 mg PO ONCE PRN #20 tab 09/22/15 Venlafaxine HCl [Effexor] 37.5 mg PO DAILY 06/21/16 Quetiapine Fumarate [Seroquel] 300 mg PO DAILY tab 08/15/16 Hyoscyamine Sulfate [Levsin-Sl] 0.125 mg PO Q4-6HRSPRN tab 10/28/16 Omeprazole 1 cap PO DAILY cap 10/28/16 Buspirone HCl 1 tab PO BID tab 01/01/17 Ibuprofen [Motrin] 800 mg PO Q8H PRN #60 tab 02/13/17 oxyCODONE/APAP 5/325 Tab [Percocet 5/325 Tab] 1 - 2 tab PO Q4H PRN #20 tab 04/24 HYDROmorphone Tab [Dilaudid Tab] 2 mg PO Q4H PRN #15 tablet 02/16/17 - Patient Allergies Allergies/Adverse Reactions: Allergies Allergy/AdvReac Type Severity Reaction Status Date / Time No Known Allergies Allergy Verified 02/16/17 11:31 Past Medical History - heen HEENT History: Denies History Cardiovascular History: Denies History Respiratory History: Denies History Gastrointestinal History: Irritable Bowel Syndrome, Other (please comment) Additional Gastrointestinal History: GASTROPARESIS Genitourinary History: Recurrent UTI, Kidney Stones Endocrine History: Denies History Musculoskeletal History: Carpal Tunnel Prosthesis or Implant: No Neurological History: Migraines Additional Neurological History: LAST MIGRAINE 3-6 MONTHS AGO Blood Disorders: Denies History Psychiatric History: Depression, Anxiety Disorders, PTSD History of Sexually Transmitted Diseases: No Cancer History: Denies History In Past Year Been Physically Harmed or Verbally Threatened: No History of MDRO: No History of Other Communicable Diseases: No Tobacco Use: Current Every Day Smoker Alcohol Use: Occasionally Substance Use Type: None Previous Surgical History: Yes Type / Date of Surgery: Hx of cholecystectomy, T & A, Right carpal tunnel release/LEEP, LITHOTRIPSY Anesthesia Reactions: No Malignant Hyperthermia: No Significant Family History: No pertinent family hx Past Medical History Reviewed: Reviewed - No Changes ROS - Limitations ROS Limitations: No Limitations Constitution: DENIES: Chills, Fever Cardiovascular: REPORTS: Denies Cardiac Symptoms Respiratory: REPORTS: Denies Resp Symptoms Neurological: REPORTS: Denies Neuro Symptoms Gastrointestinal: REPORTS: Abdominal Pain, Nausea, Other (She states that she has not had a bowel movement since her surgery.). DENIES: Vomitting Musculoskeletal: REPORTS: Denies MS Symptoms Genitourinary: REPORTS: Dysuria Eyes: REPORTS: Denies Symptoms ENT: REPORTS: Denies Symptoms Skin: DENIES: Rash Abdominal/Flank Pain PE - General Appearance General Appearance: POSITIVE: Alert, Cooperative, No Acute Distress - HEENT HEENT: POSITIVE: Head Inspection Nml, Eyes Inspection Nml, Ears Inspection Nml - Respiratory Respiratory: POSITIVE: No Respiratory Distress, Breath Sounds Normal - Cardiovascular Cardiovascular: POSITIVE: Regular Rate and Rhythm, Heart Sounds Normal - Abdomen Additional Abdominal Details: Her abdomen is slightly distended, she does have a difficult time laying down flat secondary to pain. She does have generalized abdominal tenderness which seems most prominent in the lower quadrants, no guarding or rebound tenderness, bowel sounds are present however hypoactive. - Back Back: POSITIVE: CVA Tenderness (R), CVA Tenderness (L) - Skin Skin: POSITIVE: Intact, No Rash - Extremities Extremity: Normal ROM: (All Extremities), Normal Inspection: (All Extremities) - Neurological Neurological: POSITIVE: Other (No focal neurologic deficits) Abdomen Progress - Results Reviewed by me Xrays/CTs/US Reviewed by me: Yes Discussed with Radiologist: Yes Radiology Findings: CT scan of the abdomen and pelvis with IV contrast reveals a small 2 cm fluid collection in the pelvis which most likely represents postsurgical change per radiologist, no other acute intra-abdominal findings noted. Lab Results Reviewed: Yes Lab Results:: Laboratory Results 02/16/17 02/16/17 Range/Units 11:43 12:35 WBC 7.49 (4.8-10.8) 10^3/uL RBC 4.60 (4.20-5.40) 10^6/uL Hgb 13.6 (12.0-16.0) g/dL Hct 40.1 (37.0-47.0) % MCV 87.2 (81-99) FL MCH 29.6 (27-31) PG MCHC 33.9 (33-37) g/dL RDW Std Deviation 44.2 (39-50) fL RDW Coeff of Sarah 14.1 (11.5-14.5) % Plt Count 321 (140-350) 10*3/uL MPV 10.6 (7.4-12.2) FL Immature Gran % (Auto) 0.3 (0-5) % Neut % (Auto) 67.3 (50-80) % Lymph % (Auto) 25.0 (10-50) % [place] % (Auto) 7.2 (5-15) % Eos % (Auto) 0.1 (0-8) % Baso % (Auto) 0.1 (0-1) % Immature Gran # (Auto) 0.02 10*3/UL Neut # (Auto) 5.04 10*3/UL Lymph # (Auto) 1.87 10*3/uL [place] # (Auto) 0.54 (0.3-0.8) 10*3/UL Eos # (Auto) 0.01 10*3/UL Baso # (Auto) 0.01 10*3/UL WBC Morphology Comment Normal morphology (NORM) Plt Morphology Comment Normal morphology (NORM) RBC Morph Comment Normal morphology (NORM) Sodium 140 (135-145) meq/L Potassium 3.9 (3.8-5.2) meq/L Chloride 106 (98-112) meq/L Carbon Dioxide 25 (23-33) meq/L Anion Gap 9 (5-20) BUN 13 (7-22) mg/dL Creatinine 0.7 (0.50-1.20) mg/dL Estimated GFR > 60 (>60 ml/min/1.73m(2)) BUN/Creatinine Ratio 18.57 (6-20) Glucose 87 (78-110) mg/dL Calculated Osmolality 288.0 (267-292) mOsm/kg Calcium 9.1 (8.7-10.7) mg/dL Total Bilirubin 0.3 (0.3-1.2) mg/dL AST 17 (8-39) IU/L ALT 23 (9-52) IU/L Alkaline Phosphatase 50 (38-126) IU/L C-Reactive Protein 0.8 (0.0-0.9) mg/dL Total Protein 6.7 (6.1-8.0) g/dL Albumin 3.9 (3.5-4.8) g/dL Globulin 2.8 (2.50-4.10) g/dL Albumin/Globulin Ratio 1.30 (1.3-2.0) mg/g Amylase 85 (30-110) U/L Lipase 114 (23-300) IU/L Serum HCG, Qual Negative Ur Collection Type Voided specimen Urine Color Yellow Urine Clarity Clear (CLEAR) Urine pH 6.0 (5.0-8.5) Ur Specific [place] <=1.005 (1.005-1.030) Urine Protein Negative (NEG) mg/dl Urine Glucose (UA) Negative (NEG) mg/dL Urine Ketones Negative (NEG) Urine Occult Blood Moderate H (NEG) Urine Nitrate Negative (NEG) Urine Bilirubin Negative (NEG) Urine Urobilinogen 0.2 (0.2) EU/dL Ur Leukocyte Esterase Negative (NEG) Urine RBC 4-7 (NONE) /hpf Urine WBC 0-1 (NONE) Ur Squamous Epith Cells Few (NONE) Ur Renal Epithelial Cell None (NONE) Urine Crystals None Urine Bacteria None (NONE) Urine Casts None (NONE) Urine Mucus None (NONE) Urine Trichomonas None (NONE) Urine Yeast None (NONE) Ur Culture Indicated? Culture not set - Patient's Progress MDM / ED Course: An IV was established and she was given 1 L bolus of normal saline as well as morphine 4 mg IV, Zofran 4 mg IV and Toradol 15 mg IV. She did not really have any significant pain relief and was given Dilaudid 1 mg IV. Her blood work is all essentially unremarkable with a normal blood count, normal kidney function and electrolytes, normal liver enzymes. Her urinalysis does not reveal any evidence of infection. Her CT scan shows no evidence of any acute intra- abdominal findings other than a very small 2 cm fluid collection in the pelvis. These findings were discussed with the patient as well as with Dr. Montaño. At this point it appears that she is having postoperative pain possibly exacerbated somewhat by menstrual cramping from her current menses. She was prescribed Dilaudid 2 mg 1-2 tablets every 4-6 hours as needed for pain and will continue ibuprofen 600 mg every 6 hours. In addition it was recommended that she take MiraLAX daily until her bowels are moving more regularly, especially while she is taking pain medication. She is advised return to the emergency room if she develops any increased pain, fever, vomiting or dehydration, any worsening or change in symptoms. She was advised to follow-up with Dr. Montaño in 1-2 days. - Consult Consult (If Yes, Name of Consulting MD & Time Called): Yes (Dr. Montaño) Consulting MD will see pt:: POSITIVE: In Office Counseled: POSITIVE: Patient, RE: Lab Results, RE: Radiology Results, RE: DX, RE : Need for F/U Patient Care Time - Estimated PCT Patient Care Time (In Minutes): 40 Vital Signs - Recent Vital Signs Vital Signs: Vital Signs (Last 8 hours) Temp Pulse Resp BP Pulse Ox 02/16/17 11:33 97.3 F 77 18 116/88 95 - VS Reviewed Vital Signs Reviewed: Yes Discharge Clinical Impression: Post-op pain, Menorrhagia Discharge Disposition: Discharged to Home Condition: Stable Prescriptions / Orders: HYDROmorphone Tab [Dilaudid Tab] 2 mg PO Q4H PRN #15 tablet PRN Reason: Pain Additional Instructions: The pain the your experiencing is thought to be secondary to postoperative pain associated with menstrual cramping from your current menstrual cycle. The CAT scan showed only a very small amount of fluid down in the pelvis which is likely related to recent surgery and did not show any evidence of significant bleeding or infection. Your blood work was also normal. The urine test did not show any evidence of bladder infection. I did discuss your CAT scan as well as blood work with Dr. Montaño and he is aware. Recommend continuation of ibuprofen 600 mg every 6 hours as needed for pain. In addition you have been prescribed Dilaudid 2 mg which he can take one or 2 every 4-6 hours as needed for pain. You should also take MiraLAX 17 g in 1 glass of juice daily to try to help prevent worsening constipation. Return to the emergency room if increased pain, vomiting or dehydration, fever, any worsening or change in symptoms. Recommend follow-up with Dr. Montaño in 1-2 days, call tomorrow morning to arrange follow-up. Follow Up With: JOSE EVANS [Primary Care Provider] -
[2017-02-16 11:59] LABS: BLOOD UREA NITROGEN 13 mg/dL (7-22); BUN/CREATININE RATIO 18.57 (6-20); C-REACTIVE PROTEIN 0.8 mg/dL (0.0-0.9); CALCIUM 9.1 mg/dL (8.7-10.7); EST GLOMERULAR FILTRATION > 60 (>60 ml/min/1.73m(2)); LIPASE 114 IU/L (23-300); SERUM ALBUMIN 3.9 g/dL (3.5-4.8)
[2017-02-16 12:48] LABS: BILIRUBIN,URINE NEGATIVE (NEG); CLARITY,URINE CLEAR (CLEAR); COLOR,URINE YELLOW; GLUCOSE, URINE (UA) NEGATIVE (NEG); NITRATE,URINE NEGATIVE (NEG); OCCULT BLOOD,URINE MODERATE (NEG); PROTEIN,URINE NEGATIVE (NEG); UROBILINOGEN,URINE 0.2 EU/dL (0.2)
[2017-02-16] MEDS ORDERED: HYDROmorphone 2 MG/1 ML IVP ONE ×2 (12:49→13:33)
[2017-02-16 12:55] LABS: SQUAMOUS EPITHELIAL CELL,UR FEW; URINE SAMPLE TYPE VOIDED SPECIMEN; WBC,URINE 0-1
[2017-02-16] MEDS ORDERED: HYDROmorphone 2 MG/1 ML ONE (12:55)
--- NOTE | 2017-02-16 13:13 | DI ---
HISTORY: Abdominal pain status post tubal ligation four days ago. TECHNIQUE: Serial axial images of the abdomen and pelvis were obtained with coronal and sagittal ref ormats. FINDINGS: There is a small 2cm fluid collection in the left pelvis posteriorly, possibly postoperati ve. The heart size is normal and the lung bases are clear. The liver and spleen are normal in size and contour and demonstrate no focal abnormalities. The gall bladder is unremarkable and no intra or extrahepatic biliary ductal dilatation is identified. The pa ncreas and adrenal glands are normal. The kidneys are in anatomic position. There is no evidence of renal calculi, hydronephrosis or solid renal masses. The visualized bowel, mesentery and omentum are unremarkable with no evidence of obstruction or perfo ration. IMPRESSION: 1. There is a small 2cm fluid collection in the left pelvis posteriorly, possibly postoperative. Othe rwise, unremarkable CT examination of the abdomen and the pelvis.
== END 2017-02-16 14:05 | disposition home or self-care (01) ==
LOC: ER 11:25
DX: G89.18 Other acute postprocedural pain (principal); R11.0 Nausea; N92.0 Excessive and frequent menstruation with regular cycle
CPT/HCPCS: 74177; 80053; 81001; 81003; 82150; 83690; 84703; 85025; 86140; 96361; 96374; 96375; 96376; 99283; J1170; J1885; J2270; J2405; J7030

== ENCOUNTER → 2017-02-26 | Outpatient (CLI) | payer OTHER ==
[2017-02-26 17:16] LABS: HIV ANTIBODY NEGATIVE (N); HIV-1 P24 ANTIGEN NEGATIVE (N)
[2017-02-28 08:36] LABS: HEP B SURFACE AG Negative (Negative)
== END ==
LOC: MOB LAB 14:20
PROVIDERS: ATTEND Obstetrics & Gynecology
DX: Z20.2 Contact with and (suspected) exposure to infections with a predominantly sexual mode of transmission (principal)
CPT/HCPCS: 36415; 86703; 86780; 86803; 87340; 87480; 87491; 87510; 87591; 87660

== ENCOUNTER → 2017-04-10 | Outpatient (CLI) | payer OTHER ==
--- NOTE | 2017-04-10 10:45 | DI ---
XR ELBOW COMPLETE MIN 3VW,04/10/2017 9:20 AM: Clinical History: Right elbow pain Previous Exam: None at this facility. Findings: 3 views of the right elbow are obtained, and demonstrate anatomic alignment without fractures. There is a prominent fat pad noted anteriorly and a small visible posterior fat pad, but no fractures are i dentified. Impression: Small elbow joint effusion without visible fracture. Recommend followup imaging in 7-10 days if pain persists or worsens to rule out an occult fracture of the radial head. Especially in the setting of an elbow joint effusion.
== END ==
LOC: MOB RAD 09:22
PROVIDERS: ATTEND Physician Assistant
DX: M25.521 Pain in right elbow (principal); Z72.0 Tobacco use; X50.0XXA Overexertion from strenuous movement or load, initial encounter; Y93.89 Activity, other specified; Y92.512 Supermarket, store or market as the place of occurrence of the external cause; Y99.0 Civilian activity done for income or pay
CPT/HCPCS: 73080